=== PATIENT | male | born 1955 | race Caucasian/White ===

== ENCOUNTER → 2017-10-16 | Outpatient (CLI) | payer OTHER ==
[~2017-10-16] VITALS: Ht 175.3 cm; Wt 78.9 kg
[~2017-10-16] MED LIST: FLEXERIL PO; NOHOMEMEDICATIONS PO
--- NOTE | ~2017-10-16 | HPC ---
[facility] [place] [address] PAIN MANAGEMENT CONSULTATION Name: RODGER CASANOVA Room #: REG CATARINO Arechiga.#: [id number] Admission: 10/16/17 Attend Phys: Mahin Rodrigues DO Discharge: Date of : 55 Report #: [id number] THIS REPORT FOR: //name// CC: [facility]/PCP Mahin PARADA DATE OF SERVICE: 10/16/2017 CHIEF COMPLAINT: Low back pain, left lower extremity pain with paresthesias. HISTORY OF PRESENT ILLNESS: As you know, the patient is a 61-year-old male who has had a longstanding history of axial back pain and left lower extremity pain with paresthesias. The patient has been treated with epidural injections in 1979, again in 2007 and repeated again in 2010 for similar symptoms. The patient states the most recent injections in 2010 were at [facility] in [place], [place]. At that time, MRI was obtained, those results are not available to us. He indicates that since the 08/01/2017 timeframe, he has begun physical therapy, this began in August and still involved in the physical therapy 4-5 times a week. He indicates that he was given prednisone therapy, which resolved the symptoms transiently, but once he discontinued the medication, his pain returned. He has been trying ibuprofen over the counter. He has tried ketoprofen and naproxen. He states that he suffers from history of low back pain directly related to his scoliosis and osteoarthritis. He has had recent x-ray imaging, this is not available to us. Apparently, this was done at a local chiropractor's office. He also continues to see the chiropractor for ongoing back pain issues. Despite all the treatments, he continues to experience pain at a level of 5-8/10. He indicates today his pain is steady and rhythmic; describes the pain as burning, shooting, aching, throbbing; places current pain score 5/10, daily average at 8/10, worst pain has been is 10/10. The patient has been referred to our service by his primary physician for evaluation for suspected lumbar radiculopathy. PAST MEDICAL HISTORY: 1. Osteoarthritis. 2. Degenerative joint disease. PAST SURGICAL HISTORY: 1. Splenectomy. 2. Rotator cuff repair. 3. Right total shoulder. 4. Reverse right total shoulder. 5. Open reduction and internal fixation of pelvic fracture. SOCIAL HISTORY: The patient denies tobacco, denies IV or illicit drug use. Admits to approximately 5 alcoholic beverages per week. 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 [address] [address] PAIN MANAGEMENT CONSULTATION Name: RODGER CASANOVA Room #: REG CLI [facility].#: [id number] Admission: 10/16/17 Attend Phys: Mahin Rodrigues DO Discharge: Date of : 55 Report #: [id number] He is working, not receiving workmen's compensation nor is he trying to obtain disability benefits. He is not in litigation in regards to pain. He is unaccompanied at today's visit. REVIEW OF SYSTEMS: Positive for weight gain, fever, night sweats, fatigue and weakness, tinnitus, loss of appetite, frequent diarrhea, numbness and tingling sensations, low back pain, left lower extremity pain and paresthesias. All other review of systems negative per 12-point review of systems other than those listed in history of present illness. Pain impact score 58/70 indicating severe interference of daily activities secondary to pain. ALLERGIES: MORPHINE AND SULFA. CURRENT MEDICATIONS: None. IMAGING: X-ray lumbar spine shows a scoliotic curvature of the thoracolumbar area, some osteoarthritic changes in the lower lumbar spine. No subluxations, no dislocations, no anterior or retrograde listhesis. PHYSICAL EXAMINATION: VITAL SIGNS: Blood pressure 155/86, pulse 54, respiratory rate 15 and unlabored. The patient is 99% on room air. Height 5 feet 9 inch tall, weight 174 pounds, BMI calculated 25.7. GENERAL: Well-developed, well-nourished, well-hydrated, 61-year-old male. He appears his stated age, placing current pain score anywhere from 5-8/10. HEENT: Normocephalic, atraumatic. Pupils equal, round, reactive to light. Extraocular muscles are intact. Sclerae nonicteric without injection. NEUROLOGIC: Cranial nerves 2-12 grossly intact. Speech is fluent. The patient deemed a fair historian. LUNGS: Clear. No wheeze, rhonchi or rales. CARDIOVASCULAR: Regular. No appreciable gallop, no rub. ABDOMEN: Soft, nontender, nondistended, normoactive bowel sounds. EXTREMITIES: Show no clubbing, no cyanosis, no edema. MUSCULOSKELETAL: Lower extremity strength equal and symmetrical 5/5, intact to light touch from L1 through S2 dermatomes. Seated straight leg raising negative. Supine straight leg raising positive on the left. LAKE test negative. Modified Gaenslen's positive for axial low back pain. Ankle clonus negative. Babinski is negative. Deep tendon reflexes are symmetrical at patella and Achilles. Lumbar provocation testing including extension, rotation, lateral flexion all intensify axial back pain. ASSESSMENT: 1. Symptomatic lumbar radiculopathy. 2. Lumbosacral spondylosis with radiculopathy. [address] [address] PAIN MANAGEMENT CONSULTATION Name: RODGER CASANOVA Room #: REG CATARINO Arechiga.#: [id number] Admission: 10/16/17 Attend Phys: Mahin Rodrigues DO Discharge: Date of : 55 Report #: [id number] 3. Scoliosis. 4. Chronic intractable pain. PLAN: 1. The patient has been referred to our service for evaluation for suspected lumbar radiculopathy. Given the physical, the history the patient has provided, the description the patient uses in regards to pain as well as its distribution, the likely source of the patient's pain is lumbar radiculopathy. We discussed with the patient the treatment options for lumbar radicular symptoms today. These would include physical therapy, stretching exercises, core strengthening for which the patient is currently involved and has been since 08/2017. We discussed medication management with addition of a neuropathic pain medication and consistent nonsteroidal anti-inflammatory. We discussed epidural injections under fluoroscopic guidance for which the patient has had multiples in the past with good efficacy. We have also discussed spinal cord stimulator therapy and surgical options. After reviewing the risks and benefits of all the proposed treatment options, the patient chose to begin with a lumbar epidural injection under fluoroscopic guidance. The patient was advised that third libertarian payer restrictions require that authorization be obtained before the patient could undergo an epidural injection, authorization could take anywhere from 4-7 working days. We will begin the process immediately and contact the patient once this authorization has been obtained so the patient can undergo the first in a series of epidural injections. 2. We did consider the possibility of having the patient undergo MRI of the lumbar spine. I do not feel this is necessary at this time. There is a strong possibility the patient may need to undergo MRI in the future, but we wish to collect all the previous imaging studies before having the patient undergo this expensive imaging option. We will obtain any imaging he had at the [facility] as well as any other clinics he may have visited where he has had treatment for low back symptoms. Once we have all this information, we can correlate more closely to the pathology in the lumbar region and provide more directed treatment options for the patient. Certainly surgical options do exist in this patient and he would need to undergo MRI if surgery is necessary though we wish to use a more conservative approach utilizing epidural injections and medication management initially. If this is ineffective with the use of the PT that is currently being attended, we are hopeful the patient will see good improvement in symptoms and ____ need for possible surgical treatment. The patient understands and is agreeable with using conservative treatment options initially and then look towards more aggressive treatments if options of surgery need to be entertained. 3. The patient was provided prescription of Flexeril 10 mg dose 1 tab p.o. t.i.d. p.r.n., I have given the patient #60 tablets. I have advised the patient to be extremely careful with this medication. He is to watch for side effects [address] [address] PAIN MANAGEMENT CONSULTATION Name: RODGER CASANOVA Room #: REG CATARINO Mccauley#: [id number] Admission: 10/16/17 Attend Phys: Mahin Rodrigues DO Discharge: Date of : 55 Report #: [id number] of somnolence, decreased mental acuity, disorientation and confusion with its use. The patient should not drive or operate heavy equipment while on this medication. He was given a pamphlet in regards to medication today indicating side effects and warnings while utilizing this therapy. 4. We will see the patient back in followup visit once we have received prior authorization for the patient to undergo epidural injection. Once this authorization has been obtained, we will have the patient return as quickly as possible to undergo the requested epidural injection. We will then have the patient return in 2-3 weeks after the injection to review efficacy and determine if next in a series of epidural injections would be necessary or more further imaging workup. We wish to thank you for the opportunity to see the patient in consultation. We will keep you apprised of his response to treatment as we address his lumbar radicular symptoms. Again, we wish to thank you for the opportunity to see this patient in consultation. <ELECTRONICALLY SIGNED> By: Mahin Rodrigues DO 10/23/17 0906 [id number] [id number] Mahin Rodrigues DO /nt
[2017-10-16 12:51] VITALS: BP 155/86
== END ==
LOC: PAIN 07:14
DX: M54.16 Radiculopathy, lumbar region (principal); M47.897 Other spondylosis, lumbosacral region; M41.9 Scoliosis, unspecified; G89.29 Other chronic pain; M19.90 Unspecified osteoarthritis, unspecified site; Z98.890 Other specified postprocedural states; Z96.611 Presence of right artificial shoulder joint; Z88.5 Allergy status to narcotic agent; Z88.2 Allergy status to sulfonamides

== ENCOUNTER → 2017-10-24 | Outpatient (CLI) | payer OTHER | LOC: RAD 12:26 | DX: M25.511 Pain in right shoulder (principal) ==

== ENCOUNTER → 2017-10-24 | Outpatient (CLI) | payer OTHER ==
[~2017-10-24] VITALS: Ht 177.8 cm; Wt 78.0 kg
--- NOTE | ~2017-10-24 | HPC ---
[address] [address] PAIN MANAGEMENT CONSULTATION Name: RODGER CASANOVA Room #: REG CATARINO Arechiga.#: [id number] Admission: 10/24/17 Attend Phys: Mahin Rodrigues DO Discharge: Date of : 55 Report #: [id number] THIS REPORT FOR: //name// CC: [facility] physician/PCP Mahin Rodrigues DATE OF SERVICE: 10/24/2017 REFERRING PHYSICIAN: ____. CHIEF COMPLAINT: Low back pain, left lower extremity pain with paresthesias. HISTORY OF PRESENT ILLNESS: As you know, the patient is a 61-year-old male who returns today in followup visit having received precertification to undergo the next in a series of epidural injections. The patient was last seen in our clinic on 10/16/2017, diagnosed with symptomatic lumbar radiculopathy, he was advised the treatment options at that visit and he chose to undergo epidural injection. Due to third republican payer restrictions, the patient needed to undergo approval processes before he could undergo this procedure. He returns today in followup visit having received precertification to undergo his first in a series of lumbar epidural injections. He is placing pain score at 6/10, states his pain is burning, shooting, aching, throbbing, exacerbated with standing, improves with stretching, running and "riding horses," The patient has been referred back to our clinic after receiving precertification to undergo a lumbar epidural injection under fluoroscopic guidance. ALLERGIES: SULFA and MORPHINE. CURRENT MEDICATIONS: Cyclobenzaprine 10 mg 3 times a day. SOCIAL HISTORY: The patient denies tobacco, denies IV or illicit drug use, admits to approximately 5 alcoholic beverages per week. 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 He is working, not receiving workmen's compensation, unaccompanied today. IMAGING: No new imaging available. PQRS: History of osteoarthritis, no. History of rheumatoid arthritis, no. Pain intensity 6/10. Fall risk, none. He uses no gait assistance or ambulating device. Blood thinners, None History of hypertension, none. Opioid therapy, no. Risk assessment tool is low risk for opioid addiction. Functional assessment tool 56/70. PHYSICAL EXAMINATION: VITAL SIGNS: Blood pressure 113/65, pulse 67, respiratory rate 14 and unlabored, the patient is 95% on room air, height 5 feet 10 inches tall, weight [facility] [address] [address] PAIN MANAGEMENT CONSULTATION Name: RODGER CASANOVA Room #: REG CLTho MTraci.#: [id number] Admission: 10/24/17 Attend Phys: Mahin Rodrigues DO Discharge: Date of : 55 Report #: [id number] 172 pounds, and BMI calculated 24.7. GENERAL: Well-developed, well-nourished, well-hydrated 61-year-old male, he appears his stated age, pain is rated today at around 6/10. HEENT: Normocephalic, atraumatic. Pupils are equal, round, and reactive to light. Extraocular muscles are intact. EXTREMITIES: Show no clubbing, no cyanosis, and no edema. MUSCULOSKELETAL: Seated straight leg raising negative. Supine straight leg raising positive on the left. Duglas's test negative. Modified Gaenslen's positive for axial low back pain. Ankle clonus negative. Babinski is negative. ASSESSMENT: 1. Symptomatic lumbar radiculopathy. 2. Lumbosacral spondylosis with radiculopathy. 3. Scoliosis. 4. Chronic intractable pain. PLAN: 1. The patient returns today in followup visit with pain level of 6/10, he has been preauthorized to undergo a lumbar epidural injection under fluoroscopic guidance. We have discussed with the patient the risks and benefits of the procedure. These risks include, but are not necessarily limited to bleeding, bruising, infection, worsening of pain, no relief of pain, also risk of temporary or permanent muscle weakness, temporary or permanent nerve damage, possible paralysis and . The patient states understood and wished to proceed. 2. No medication changes were made at today's visit. The patient will continue current medical therapy as previously prescribed. 3. We will see the patient back in followup visit in approximately 3 weeks. At that time, we will review the efficacy of today's epidural injection and determine if next in a series of epidural injections might be necessary. PROCEDURE NOTE DESCRIPTION OF PROCEDURE: L5-S1 left paramedian epidural steroid injection under fluoroscopic guidance. This is the first procedure of the first series that the patient is undergoing. After obtaining written consent, the patient was taken back to the fluoroscopy suite, placed in a prone position with pillow under the abdomen to decrease lumbar lordosis. The skin overlying the lumbosacral area was then prepped and draped in aseptic fashion. The L5-S1 vertebral interspace was then identified by AP fluoroscopy. The skin and subcutaneous tissue overlying the target site of injection was anesthetized with 3 mL 1% lidocaine. A 20-gauge 3-1/2-inch Tuohy needle was then advanced under fluoroscopic guidance [address] [address] PAIN MANAGEMENT CONSULTATION Name: RODGER CASANOVA Room #: REG CLI Garrick#: [id number] Admission: 10/24/17 Attend Phys: Mahin Rodrigues DO Discharge: Date of : 55 Report #: [id number] towards the epidural space using a left paramedian approach. The epidural space was identified using loss of resistance to air technique. After negative aspiration for heme or cerebrospinal fluid, a total of 1 mL of Omnipaque was injected. A lumbar epidurogram was confirmed using both AP and lateral fluoroscopy. After negative aspiration for heme or cerebrospinal fluid, 5 mL of a solution containing 2 mL 40 mg per mL, 80 mg total triamcinolone, 3 mL lidocaine 1% was injected in increments. Contrast spread was noted posterior epidural space. The needle was then retracted approximately half way and needle tract flushed with 1 mL of 1% lidocaine. Needle was then removed. There were no apparent sensory or motor deficits in the lower extremity following the procedure. A sterile bandage was placed over the injection site. The heart rate, pulse, oximetry and blood pressure were continuously monitored after the procedure. There were no apparent complications. The patient tolerated the procedure well and was carefully escorted to the recovery room in stable condition. There were no apparent complications. After meeting discharge criteria, the patient was then discharged home. <ELECTRONICALLY SIGNED> By: Mahin Rodrigues DO 10/31/17 0902 0820 1020 Mahin Rodrigues DO /nt
[2017-10-24 09:36] VITALS: BP 113/65
== END | disposition home or self-care (01) ==
LOC: PAIN 06:51
DX: M47.27 Other spondylosis with radiculopathy, lumbosacral region (principal); M41.86 Other forms of scoliosis, lumbar region; G89.29 Other chronic pain; Z88.2 Allergy status to sulfonamides; Z88.6 Allergy status to analgesic agent

== ENCOUNTER → 2017-11-07 | Outpatient (CLI) | payer OTHER ==
[~2017-11-07] VITALS: Ht 177.8 cm; Wt 77.1 kg
--- NOTE | ~2017-11-07 | HPC ---
[facility] [place] [address] PAIN MANAGEMENT CONSULTATION Name: RODGER CASANOVA Room #: REG [facility]..#: [id number] Admission: 11/07/17 Attend Phys: Mahin Rodrigues DO Discharge: Date of : 55 Report #: [id number] THIS REPORT FOR: //name// CC: [facility] physician/PCP Mahin Rodrigues PHYSICIAN REFERRING DATE OF SERVICE: 11/07/2017 CHIEF COMPLAINT: Low back pain, left lower extremity pain with paresthesias. HISTORY OF PRESENT ILLNESS: As you know, the patient is a 61-year-old male who has [facility] the past month for lumbar radicular pain secondary to arthritic changes in the lumbar region. He returns today in followup visit, having received 100% improvement in overall pain with the epidural injection provided on 10/24/2017. This lasted for nearly a week. He then was on a flight with 10-hour of sitting that exacerbated his symptoms. He has now returned to a pain level of 3/10, a 50% improvement overall from a 6/10 at the last visit. He indicates today pain is pulsating, aching, numbness, tingling, pins and needles in sensation, exacerbated with stretching, running and riding horses; improves with epidural injections and rest. He returns today, requesting to begin the process of preauthorization for the next in the series of epidural injections. ALLERGIES: SULFA, MORPHINE. CURRENT MEDICATIONS: Cyclobenzaprine 10 mg 3 times a day. SOCIAL HISTORY: The patient denies tobacco, IV or illicit drug use. He admits to approximately 5 alcoholic beverages per week. 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 IMAGING: No new imaging available. PQRS: The patient does not have a history of osteoarthritis, no rheumatoid arthritis has been diagnosed. His pain level today is 3/10. He is experiencing no risk of falls. He does not use an assistive device for gait. Blood thinners are no. History of hypertension, none. Opioid therapy, no, he has a low risk for opioid addiction. PHYSICAL EXAMINATION: VITAL SIGNS: Blood pressure 139/70, pulse 72, respiratory rate 14 and unlabored. The patient is 97% on room air. Height 5 feet 10 inches tall, weighs 170 pounds, BMI calculated 24.4. GENERAL: Well-developed, well-nourished, well-hydrated, 61-year-old male. He appears his stated age. He is placing current pain score 3/10. [place] [address] PAIN MANAGEMENT CONSULTATION Name: RODGER CASANOVA Room #: REG [facility]#: [id number] Admission: 11/07/17 Attend Phys: Mahin Rodrigues DO Discharge: Date of : 55 Report #: [id number] HEENT: Normocephalic, atraumatic. Pupils equal, round, reactive to light. Extraocular muscles are intact. Sclerae nonicteric without injection. Speech fluent. LUNGS: Clear; no wheeze, rhonchi or rales. CARDIOVASCULAR: Regular. No appreciable gallop or rub. ABDOMEN: Soft, nontender, nondistended. EXTREMITIES: Show no clubbing, no cyanosis, no edema. MUSCULOSKELETAL: Lower extremity strength appears equal and symmetrical 5/5, muscle bulk and tone equal and symmetrical. Seated straight leg raising negative. Supine straight leg raising positive on the left. Duglas test negative. Modified Gaenslen's positive for axial low back pain. Ankle clonus negative. Babinski is negative. Gait mildly antalgic, favoring left lower extremity over right. ASSESSMENT: 1. Symptomatic lumbar radiculopathy. 2. Lumbosacral spondylosis with radiculopathy. 3. Scoliosis. 4. Chronic intractable pain. PLAN: 1. The patient returns today in followup visit, having reported 100% improvement in overall pain with the epidural injection provided at last visit. The patient was doing well until a flight where he was on airplane for nearly 10 hours. Apparently, this exacerbated the symptoms back to about a 50% improvement overall. He is now placing pain score 3/10. He returns today in followup visit, requesting to undergo the next in a series of epidural injections. I did advise the patient that third democrat payer restrictions require the authorization be obtained. This authorization could take anywhere from 4-7 working days to begin the process immediately. Once we have achieved authorization, we will have the patient return in followup visit to undergo this requested procedure. 2. No medication changes were made at today's visit. The patient is to continue current medical therapy as previously prescribed. 3. We will see the patient back in followup visit in hopefully 4-7 working days to undergo second in the series of epidural injections under fluoroscopic guidance to build on success of previous intervention. <ELECTRONICALLY SIGNED> By: Mahin Rodrigues DO 11/13/17 0729 0844 1000 Mahin Rodrigues DO /nt
[2017-11-07 08:18] VITALS: BP 139/70
== END ==
LOC: PAIN 07:01
DX: M47.27 Other spondylosis with radiculopathy, lumbosacral region (principal); M41.86 Other forms of scoliosis, lumbar region; G89.29 Other chronic pain; M53.3 Sacrococcygeal disorders, not elsewhere classified

== ENCOUNTER → 2017-11-13 | Outpatient (CLI) | payer OTHER ==
[~2017-11-13] VITALS: Ht 177.8 cm; Wt 76.5 kg
--- NOTE | ~2017-11-13 | HPC ---
[facility] [address] [place] [address] PAIN MANAGEMENT CONSULTATION Name: RODGER CASANOVA [id number] Admission: 11/13/17 Attend Phys: Mahin Rodrigues DO Discharge: Date of : 55 Report #: [id number] THIS REPORT FOR: //name// CC: [facility] physician/PCP Mahin Rodrigues Referring Physician DATE OF SERVICE: 11/13/2017 CHIEF COMPLAINT: Low back pain, left lower extremity pain and paresthesias. HISTORY OF PRESENT ILLNESS: As you know, the patient is a 61-year-old male who returns today in followup visit to undergo second in the series of epidural injections under fluoroscopic guidance. We have received precertification for the patient to undergo the procedure today. The patient is placing pain score today 4-5/10 states his pain is pulsing, aching, numbness and tingling. He states sitting exacerbates the symptoms, stretching running and riding horses tends to improve pain. The pain begins in low back, radiates down the left leg all the way to the great toe. He returns today to undergo the second in series of epidural injections in hopes of improving pain. ALLERGIES: SULFA and MORPHINE. CURRENT MEDICATIONS: Cyclobenzaprine 10 mg 3 times a day p.r.n. SOCIAL HISTORY: The patient denies tobacco, IV or illicit drug use, admits to approximately 5 alcoholic beverages per week. 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 IMAGING: No new imaging available. PQRS: The patient does not have a diagnosis of osteoarthritis or rheumatoid arthritis. His pain intensity is 4/5. He is not a fall risk, has not had a fall in the past 3 months. He does not use any type of ambulatory device. Blood thinners are none. He is not being treated for hypertension. He has not been on opioids for greater than 6 weeks. He is not on opioid contract with us. Risk assessment tool for opioids shows low risk. Functional assessment and pain impact score 22/70 indicating [id number] interference. PHYSICAL EXAMINATION: VITAL SIGNS: Blood pressure 118/79, pulse is 82, respiratory rate 16 and unlabored, the patient is 96% on room air, height 5 feet 10 inches tall, weight 168.6 pounds, and BMI calculated 24.2. GENERAL: Well-developed, well-nourished, well-hydrated 61-year-old male, appears his stated age, placing current pain score at 4-5/10. HEENT: Normocephalic, atraumatic. Pupils are equal, round, and reactive to [address] [address] PAIN MANAGEMENT CONSULTATION Name: RODGER CASANOVA Room #: [facility] M..#: [id number] Admission: 11/13/17 Attend Phys: Mahin Rodrigues DO Discharge: Date of : 55 Report #: [id number] light. Extraocular muscles are intact. Sclerae are nonicteric without injection. EXTREMITIES: Show no clubbing, no cyanosis, and no edema. MUSCULOSKELETAL: Lower extremity strength equal and symmetrical 5/5, muscle bulk and tone equal and symmetrical. Seated straight leg raising negative. Supine straight leg raising positive on the left. Duglas's test negative. Gait mildly antalgic favoring left lower extremity over right. ASSESSMENT: 1. Symptomatic lumbar radiculopathy. 2. Lumbosacral spondylosis with radiculopathy. 3. Scoliosis. 4. Chronic intractable pain. PLAN: 1. The patient returns today in followup visit having received precertification to undergo epidural injection under fluoroscopic guidance. The patient has been advised the risks and benefits of the procedure. These risks include, but are not necessarily limited to bleeding, bruising, infection, worsening of pain, no relief of pain, also risk of temporary or permanent muscle weakness, temporary or permanent nerve damage, possible paralysis and . The patient states understood and wished to proceed. 2. No medication changes were made at today's visit. The patient to continue current medical therapy as previously prescribed. 3. The patient will return to our clinic on an as needed basis for the possible next in the series of epidural injections. PROCEDURE NOTE DESCRIPTION OF PROCEDURE: Lumbar epidural steroid injection under fluoroscopic guidance. This is the second procedure of the first series that the patient is undergoing. After obtaining written consent, the patient was taken back to the fluoroscopy suite, placed in a prone position with pillow under the abdomen to decrease lumbar lordosis. The skin overlying the lumbosacral area was then prepped and draped in aseptic fashion. The lumbar vertebral interspace was then identified by AP fluoroscopy. The skin and subcutaneous tissue overlying the target site of injection was anesthetized with 3 mL 1% lidocaine. A 20-gauge 3-1/2-inch Tuohy needle was then advanced under fluoroscopic guidance towards the epidural space using a paramedian approach. The epidural space was identified using loss of resistance to air technique. After negative aspiration for heme or cerebrospinal fluid, a total of 0.5 mL of Omnipaque was injected. A lumbar epidurogram was confirmed using both AP and lateral fluoroscopy. After [address] [address] PAIN MANAGEMENT CONSULTATION Name: RODGER CASANOVA Room #: REG CLI Hawk#: [id number] Admission: 11/13/17 Attend Phys: Mahin Rodrigues DO Discharge: Date of : 55 Report #: [id number] negative aspiration for heme or cerebrospinal fluid, 5 mL of a solution containing 2 mL 40 mg per mL, 80 mg total triamcinolone, 3 mL lidocaine 1% was injected in increments. Contrast spread was noted posterior epidural space. The needle was then retracted approximately half way and needle tract flushed with 1 mL of 1% lidocaine. Needle was then removed. There were no apparent sensory or motor deficits in the lower extremity following the procedure. A sterile bandage was placed over the injection site. The heart rate, pulse, oximetry and blood pressure were continuously monitored after the procedure. There were no apparent complications. The patient tolerated the procedure well and was carefully escorted to the recovery room in stable condition. There were no apparent complications. After meeting discharge criteria, the patient was then discharged home. <ELECTRONICALLY SIGNED> By: Mahin Rodrigues DO 11/20/17 [id number] Mahin Rodrigues DO /nt
[2017-11-13 13:05] VITALS: BP 118/79
== END | disposition home or self-care (01) ==
LOC: PAIN 08:23
DX: M54.16 Radiculopathy, lumbar region (principal); M47.27 Other spondylosis with radiculopathy, lumbosacral region; M41.9 Scoliosis, unspecified; G89.29 Other chronic pain; Z88.8 Allergy status to other drugs, medicaments and biological substances; Z79.899 Other long term (current) drug therapy